=== PATIENT | female | born 1960 | race Caucasian/White ===

== ENCOUNTER 2023-12-01 12:02 | Emergency (ER) | payer BC, OTHER ==
[2023-12-01 14:05] VITALS: BP 163/81; PULSE 62
== END 2023-12-01 14:23 | disposition home or self-care (01) ==
LOC: JP.ED 12:02
DX: M54.2 Cervicalgia (principal); I10 Essential (primary) hypertension; Z90.49 Acquired absence of other specified parts of digestive tract; Z79.899 Other long term (current) drug therapy; Z88.0 Allergy status to penicillin; Z88.1 Allergy status to other antibiotic agents
CPT/HCPCS: 71046; 71046-26; 72040; 72040-26; 99285